=== PATIENT | female | born 1985 | race Caucasian/White ===

== ENCOUNTER 2020-07-29 19:02 | Emergency (ER) | payer MEDICAID, OTHER ==
[~2020-07-29] VITALS: Ht 165.1 cm; Wt 45.0 kg
[~2020-07-29 19:02] MED LIST: BUPR100T6 PO; CITA10TA8 PO; DOXE50CA PO; GABA300C10 PO; OXYC10TA6 PO
--- NOTE | 2020-07-29 19:21 | NUR ---
BELONGINGS REMOVED, SITTER IN LINE OF SITE, GARAGE DOORS DOWN. PT IS CALM, COOPERATIVE ON ARRIVAL. WAS GIVEN 4MG VERSED IM ON SCENE. PT DENIES ANY SI/HI ON ARRIVAL. NOT TAKING HER PSYCH MEDS, LIVES WITH GRANDPARENTS WHO STATE SHE IS DOING METH AND ACTING VIOLENT. TAKES SUBOXONE. PT REPORTS "SCHIZOEFFECTIVE DISORDER".
[2020-07-29 19:38] LABS: BASOPHILS % (AUTO) 0 % (0-1); EOSINOPHILS % (AUTO) 0 % (1-7); LYMPHOCYTES % (AUTO) 17 % (22-44); MEAN CORPUSCULAR HEMOGLOBIN 31.9 pg (27.0-34.8); MEAN CORPUSCULAR HGB CONC 33.8 g/dL (32.4-35.8); MEAN PLATELET VOLUME 8.4 fL (7.4-10.4); MONOCYTES % (AUTO) 4 % (2-9); NEUTROPHILS % (AUTO) 78 % (42-75); PLATELET COUNT 175 x10^3/uL (130-400); RED BLOOD COUNT 4.36 x10^6/uL (3.82-5.3)
--- NOTE | 2020-07-29 19:47 | NUR ---
Pt on cont pulse ox due to versed admin in field. Pt provided urine sample/sent. Flushing, drinks, snacks provided for pt. Sitter in line of site. Will continue to monitor.
[2020-07-29 19:49] LABS: ALANINE AMINOTRANSFERASE 21 U/L (12-78); ALBUMIN 4.2 g/dL (3.4-5.0); ANION GAP 8 mmol/L (5-15); CALCIUM 8.9 mg/dL (8.5-10.1); CHLORIDE 111 mmol/L (98-107); CREATININE 1.27 mg/dL (0.55-1.02)
[2020-07-29 19:51] LABS: MD NO
[2020-07-29 19:59] LABS: ALKALINE PHOSPHATASE 51 U/L (45-117); BILIRUBIN,TOTAL 0.7 mg/dL (0.2-1.0); TOTAL PROTEIN 6.7 g/dL (6.4-8.2)
[2020-07-29 20:10] LABS: AMPHETAMINE SCREEN, URINE Positive (Negative); BARBITURATE SCREEN, URINE Negative (Negative); BENZODIAZEPINE SCREEN, URINE Positive (Negative); CANNABINOID SCREEN, URINE Positive (Negative); COCAINE SCREEN, URINE Negative (Negative); METHADONE SCREEN, URINE Negative (Negative); OPIATE SCREEN, URINE Positive (Negative)
--- NOTE | 2020-07-29 20:18 | NUR ---
Pt remains, calm, cooperative. Watching tv, ate sandwich and chips drinking large water. Pt is aware she is on legal hold. Sitter in line of site, will continue to monitor.
--- NOTE | 2020-07-29 20:30 | NUR ---
Watching tv, talking to herself but calm and cooperative.
--- NOTE | 2020-07-29 21:30 | NUR ---
PT WITH INCREASING IN PARANOIA AND AGGITATION, RACING THOUGHTS, PACING BACK AND FORTH DEMANDING PAIN MEDICATION OXY. FEELS LIKE SOMEONE IS WATCHING HER SHE SAYS, RANDOM RACING THOUGHTS, AGGITATED BODY LANGUAGE LUNGING AND POINTING FINGER IN STAFF FACE. INFORMED PA-C FOR ORDER FOR MED.
[2020-07-29] MEDS ORDERED: ZIPRASIDONE 20 MG INJ IM ONE ×2 (21:37→22:00)
--- NOTE | 2020-07-29 21:44 | NUR ---
Security called to stand by for injection as patient was observed threatening sitter, flailing arms, pressured non sensical speach. Upon security arrival pt allowed injection, became tearful, got back into gurney and no untoward events occurred. Sitter remains in line of site. CN was aware of escalating situatiopn with this pt.
--- NOTE | 2020-07-29 22:18 | NUR ---
Pt now sleeping, RR equal and unlabored. Sitter in line of site; will continue to monitor.
--- NOTE | 2020-07-29 22:40 | NUR ---
Yesica True [phone]
--- NOTE | 2020-07-29 22:47 | NUR ---
Mother of pt Pedro True, pt lives with her mom and step dad. Mother (pedro) is who called 911. She says pt has been refusing to take any of her psych medications and has become increasingly violent at home. Mom has been trying to get her into see psych here in [place] for a "psych shot" because she won't take pills. Mom says she was living in [place] with a bf but mom went out there to pick her up. Mother believes she was dx with schizoeffective and bipolar, also has hx of Elhers Danlers syndrome.
--- NOTE | 2020-07-29 23:36 | NUR ---
Pt sleeping, RR equal and unlabored. Garage doors down, safety updated. Sitter at bedside in line of site.
--- NOTE | 2020-07-30 00:12 | NUR ---
Sleeping RR equal and unlabored. Sitter in line of site. Will continue to monitor. Needs met of pt.
--- NOTE | 2020-07-30 01:14 | NUR ---
Sleeping, RR equal and unlabored. Sitter in line of site, will continue to monitor.
--- NOTE | 2020-07-30 02:23 | NUR ---
Sleeping, RR equal and unlabored. In line of site of sitter, will continue to monitor.
--- NOTE | 2020-07-30 03:27 | NUR ---
Sleeping, RR equal and unlabored. Sitter in line of site, will continue to monitor.
--- NOTE | 2020-07-30 03:46 | NUR ---
packet faxed to [facility].
--- NOTE | 2020-07-30 04:25 | NUR ---
Sleeping, RR equal and unlabored. Sitter in line of site; will continue to monitor.
--- NOTE | 2020-07-30 04:43 | NUR ---
report received from thomas donaldson
--- NOTE | 2020-07-30 05:14 | NUR ---
Face sheet updated. self pay. packet faxed to [facility]
--- NOTE | 2020-07-30 06:26 | NUR ---
pt sleeping, no needs at this time
--- NOTE | 2020-07-30 07:03 | NUR ---
report given to olive donaldson
--- NOTE | 2020-07-30 07:06 | NUR ---
SBAR HAND-OFF REPORT RECEIVED FROM SUZI MESA. ASSUMING CARE OF PATIENT.
--- NOTE | 2020-07-30 08:00 | NUR ---
BREAKFAST AND JUICE SERVED TO PATIENT.
[2020-07-30] MEDS ORDERED: CYCL15CA21 PO (09:18)
--- NOTE | 2020-07-30 10:17 | NUR ---
MOTHER, TROY, CALLED AND HER PHONE NUMBER IS .
[2020-07-30] MEDS ORDERED: OXYcodone IR 5MG TABLET ONE (10:31)
[2020-07-30] MEDS: OXYcodone IR 5MG TABLET PO PRN (10:37)
--- NOTE | 2020-07-30 11:38 | NUR ---
BREAK RN: RAMIRO JOURNEYMAN MACHINIST AT BEDSIDE TO [place] PT. MEAL TRAY REQUESTED. PT CONT IN SECURE ROOM WITH SITTER.
[2020-07-30] MEDS ORDERED: LORazepam 1MG TABLET PO ONE (12:00)
--- NOTE | 2020-07-30 12:10 | NUR ---
REPORT TO RAHAT ARCHER
[2020-07-30] MEDS ORDERED: LORazepam 1MG TABLET ONE (12:33)
--- NOTE | 2020-07-30 12:38 | NUR ---
PHARMACY REQUEST SLIP SENT TO PHARMACY FOR INVEGA. PT MEDICATED WITH ATIVAN PO ORDERED AND LUNCH TRAY SERVED. PT IS CALM AND COOPERATIVE AT THIS TIME BUT IS SOMEWHAT ANXIOUS.
--- NOTE | 2020-07-30 12:51 | NUR ---
CALLED [facility]STAIRS TO [facility] AND LEFT VOICEMAIL REQUESTING THAT SOMEONE HELP PATIENT APPLY FOR MEDICAID.
[2020-07-30] MEDS ORDERED: PALIPERIDONE 3 MG TAB.ER.24 PO SCH (13:00)
--- NOTE | 2020-07-30 13:25 | NUR ---
PUT PATIENT ON HOSPITAL BED FOR COMFORT. FRESH WATER SERVED. PT RESTING WITH NO COMPLAINTS AND IS WATCHING TV.
--- NOTE | 2020-07-30 14:00 | NUR ---
PT REMAINS UNDER CONSTANT SUPERVISION OF SITTER AND REMAINS SAFE.
--- NOTE | 2020-07-30 15:00 | NUR ---
PT REMAINS UNDER CONSTANT SUPERVISION OF SITTER AND REMAINS SAFE.
--- NOTE | 2020-07-30 16:00 | NUR ---
PT REMAINS UNDER CONSTANT SUPERVISION OF SITTER AND REMAINS SAFE.
--- NOTE | 2020-07-30 17:00 | NUR ---
PT REMAINS UNDER CONSTANT SUPERVISION OF SITTER AND REMAINS SAFE.
--- NOTE | 2020-07-30 18:00 | NUR ---
PT REMAINS UNDER CONSTANT SUPERVISION OF SITTER AND REMAINS SAFE.
--- NOTE | 2020-07-30 19:14 | NUR ---
SBAR HAND-OFF REPORT TO SUZI BABIN.
--- NOTE | 2020-07-30 20:52 | NUR ---
PT RESTING COMFORTABLY IN BED, PT AMBULATED TO RESTROOM EARLIER AND WAS PROVIDED JUICE PER REQUEST. IN LINE OF SIGHT OF SITTER
--- NOTE | 2020-07-30 21:43 | NUR ---
PT ASLEEP IN BED, RESPIRATIONS EVEN/UNLABORED. IN LINE OF SIGHT OF SITTER
--- NOTE | 2020-07-30 23:14 | NUR ---
PT STILL SLEEPING, IN LINE OF SIGHT OF SITTER, RESPIRATIONS EVEN/UNLABORED
--- NOTE | 2020-07-30 23:53 | NUR ---
pt sleeping, respirations even/unlabored. in line of sight of sitter
--- NOTE | 2020-07-31 01:06 | NUR ---
pt still sleeping, in line of sight of sitter, no s/s of distress
--- NOTE | 2020-07-31 02:25 | NUR ---
PT SLEEPING, RESPIRATIONS EVEN/UNLABORED. IN LINE OF SIGHT OF SITTER
--- NOTE | 2020-07-31 04:20 | NUR ---
PT ASLEEP, RESP EVEN/UNLABORED, IN LINE OF SIGHT OF SITTER
--- NOTE | 2020-07-31 06:23 | NUR ---
PT ASLEEP, RESPIRATIONS EVEN/UNLABORED. IN LINE OF SIGHT OF SITTER
--- NOTE | 2020-07-31 07:02 | NUR ---
REPORT REC'VD FROM SUZI BABIN. PT RESTING ON HOSPITAL BED. EVEN RISE OF CHEST NOTED. PT IN FULL VIEW OF SITTER. ROOM SECURED.
--- NOTE | 2020-07-31 08:16 | NUR ---
BREAKFAST TRAY DELIVERED. PT AWAKENED TO RN IN ROOM.
[2020-07-31] MEDS ORDERED: OXYcodone IR 5MG TABLET ONE (08:42)
[2020-07-31] MEDS: OXYcodone IR 5MG TABLET PO PRN (08:52)
--- NOTE | 2020-07-31 08:59 | NUR ---
PT PHYSICAL AND SUICIDE REASSESSMENT COMPLETED. VSS. PT HAS LEFT SHOLDER AND MIDBACK PAIN. PT STATES SHE HAS NO SUICIDAL THOUGHTS, SHE JUST WANTS TO BE ABLE TO TALK TO GOD. PT ALSO STATES SHE DOESN'T WANT THE MEDS WE ARE GIVING HER, THEY MAKE HER SLEEPY AND UNABLE TO HEAR GOD. PT ASKING FOR PAPER AND PENCIL TO WRITE WHAT SHE IS HEARING.
[2020-07-31] MEDS ORDERED: PALIPERIDONE 1.5 MG TAB.ER.24 PO SCH (09:00)
--- NOTE | 2020-07-31 11:55 | NUR ---
PT IN FULL VIEW OF SITTER. ROOM SECURED.
--- NOTE | 2020-07-31 11:55 | NUR ---
PT SITTING UP ON HOSPITAL BED WITH BOOK IN HAND. PT STILL REQUESTING PEN AND PAPER. ALL OTHER NEEDS MET AT THIS TIME.
[2020-07-31] MEDS ORDERED: NICOTINE 14MG/24 HR PATCH.TD24 TD SCH (12:30)
[2020-07-31] MEDS ORDERED: NICOTINE 14MG/24 HR PATCH.TD24 ONE (13:35)
[2020-07-31] MEDS ORDERED: OXYcodone/APAP 10/325MG TABLET ONE (13:36)
[2020-07-31] MEDS: PALIPERIDONE 1.5 MG TAB.ER.24 PO SCH (13:48)
[2020-07-31] MEDS: OXYcodone/APAP 10/325MG TABLET PO PRN (13:49)
--- NOTE | 2020-07-31 13:50 | NUR ---
PT MEDICATED PER MAR
--- NOTE | 2020-07-31 14:54 | NUR ---
TASK RN: PT HAS NO NEEDS AT THIS TIME. IN DIRECT VIEW OF SITTER.
--- NOTE | 2020-07-31 15:29 | NUR ---
PT RESTING ON [facility] WITH PEN AND PAPER IN HAND. PT REQUESTED AND PROVIDED DECAF COFFEE. ALL NEEDS MET AT THIS TIME.
--- NOTE | 2020-07-31 17:32 | NUR ---
PT DINNER DELSAWVERED. NAD. PT IN FULL VIEW OF SITTER. ROOM SECURED. ALL PT NEEDS MET AT THIS TIME.
--- NOTE | 2020-07-31 19:03 | NUR ---
report received from saroj donaldson
[2020-07-31] MEDS ORDERED: LORazepam 2 MG/ML, 1ML ONE (19:52)
[2020-07-31] MEDS: LORazepam 2 MG/ML, 1ML IM PRN (20:03)
--- NOTE | 2020-07-31 20:04 | NUR ---
PT DENYING SI THOUGHTS. STATES SHE NEEDS TO SAVE 45 SOULS FOR GOD BEFORE SHE IS ABLE TO GO HOME. PT RESTING IN HOSPITAL BED, GIVEN SPRITE AND MEDICATED FOR ANXIETY PER EMAR.
--- NOTE | 2020-07-31 21:01 | NUR ---
PT RESTING IN HOSPITAL BED, NO NEEDS AT THIS TIME
--- NOTE | 2020-07-31 22:33 | NUR ---
PT SLEEPING, RESP EVEN AND UNLABORED. SITTER AT DOORWAY
--- NOTE | 2020-08-01 00:42 | NUR ---
PT SLEEPING, RESP EVEN AND UNLABORED. SITTER AT DOORWAY
--- NOTE | 2020-08-01 02:00 | NUR ---
pt sleeping, sitter at doorway
--- NOTE | 2020-08-01 03:00 | NUR ---
pt sleeping, sitter at doorway
--- NOTE | 2020-08-01 03:57 | NUR ---
pt sleeping, no needs at this time. sitter at doorway
--- NOTE | 2020-08-01 05:24 | NUR ---
pt sleeping, no needs at this time, sitter at doorway
[2020-08-01] MEDS ORDERED: OXYcodone/APAP 10/325MG TABLET ONE (05:41)
[2020-08-01] MEDS: OXYcodone/APAP 10/325MG TABLET PO PRN ×2 (05:45→12:06)
--- NOTE | 2020-08-01 07:00 | NUR ---
ASSUMED CARE OF PATIENT. REPORT FROM MOSHE ARCHER.
--- NOTE | 2020-08-01 07:40 | NUR ---
PATIENT IS RESTING COMFORTABLY IN A HOSPITAL BED WITH SITTER OUTSIDE THE DOOR. SHE STATES SHE IS HUNGRY AND THAT SHE ALMOST STARVED HERSELF BUT GOD TOOK OVER AND NOW SHE HEARS AND SEES GOD. SHE IS ALSO SEEING SHADOWS AND BELIEVES THERE ARE SOME SORT OF MONSTER IN HER ROOM. SECURITY BREAKFAST TRAY ORDERED. VITALS UPDATED.
--- NOTE | 2020-08-01 08:12 | NUR ---
SECURITY BREAKFAST TRAY PROVIDED
--- NOTE | 2020-08-01 08:59 | NUR ---
REPORT GIVEN TO KATHY ARCHER.
--- NOTE | 2020-08-01 09:32 | NUR ---
PT RESTING COMFORTABLY IN BED AT THIS TIME. ROOM SECURE AND SITTER IN HALLWAY.
[2020-08-01] MEDS: PALIPERIDONE 1.5 MG TAB.ER.24 PO SCH (10:27)
[2020-08-01] MEDS ORDERED: IBUPROFEN 600 MG TABLET ONE (10:53)
--- NOTE | 2020-08-01 10:54 | NUR ---
PT MEDICATED FOR PAIN AT THIS TIME. PT WISHES TO USE SHOWER. TECH AT PT SIDE TO SHOWER.
[2020-08-01] MEDS ORDERED: IBUPROFEN 600 MG TABLET PO ONE (11:00)
[2020-08-01] MEDS ORDERED: HYDROcodone/APAP 10/325 MG TABLET ONE (12:02)
--- NOTE | 2020-08-01 12:23 | NUR ---
pt resting comfortably in bed. pt medicated per order for pain. room secure and sitter in hallway. pt denies si/hi at this time. bible and pen at bedside
--- NOTE | 2020-08-01 14:02 | NUR ---
ASSUMED CARE FROM SUZI CHAVEZ. PT RESTING IN [facility] AT THIS TIME, WILL CONTINUE TO MONITOR. PT REPORTS NO NEEDS AT THIS TIME.
[2020-08-01] MEDS ORDERED: NICOTINE 14MG/24 HR PATCH.TD24 TD ONE (14:30)
[2020-08-01] MEDS ORDERED: NICOTINE 14MG/24 HR PATCH.TD24 ONE (14:38)
[2020-08-01] MEDS ORDERED: LORazepam 2 MG/ML, 1ML ONE (15:43)
[2020-08-01] MEDS: LORazepam 2 MG/ML, 1ML IM PRN (15:45)
--- NOTE | 2020-08-01 16:37 | NUR ---
PT RESTING IN [facility], PROVIDED SNACK, PT STATES NO NEEDS AT THIS TIME, WILL CONTINUE TO MONITOR.
[2020-08-01] MEDS ORDERED: OXYcodone/APAP 10/325MG TABLET PO ONE (18:00)
--- NOTE | 2020-08-01 18:04 | NUR ---
PT REPORTING SHE HAS RIGHT RIB PAIN 02/19. PT MEDICATED PER EMAR. [facility], WILL CONTINUE TO MONITOR.
--- NOTE | 2020-08-01 18:51 | NUR ---
Note davdi in EDM - 08/01/20 at 1852 by CHAGO BREAK RN: PT RESTING IN ROOM. TAX TECHNICIAN ON. FAMILY AT BEDSIDE. SITTER AT DOOR. CALL LIGHT IN PLACE. WILL CONTINUE TO MONITOR WHILE PRIMARY RN IS ON BREAK.
--- NOTE | 2020-08-01 18:52 | NUR ---
BREAK RN: PT RESTING IN ROOM. REGULAR RESP. NO ACUTE DISTRESS NOTED. SITTER AT DOOR. WILL CONTINUE TO MONIOR WHILE PRIMARY RN IS ON BREAK.
[2020-08-01] MEDS ORDERED: CYCLOBENZAPRINE 10 MG TABLET ONE (22:50)
[2020-08-01] MEDS ORDERED: CYCLOBENZAPRINE 10 MG TABLET PO ONE (23:00)
--- NOTE | 2020-08-01 23:24 | NUR ---
PT RESTING IN [facility], SITTER IN LINE OF SITE, JOSE ALEJANDRO AT THIS TIME, WILL CONTINUE TO MONITOR.
--- NOTE | 2020-08-02 01:25 | NUR ---
PT RESTING IN [facility], WITHIN DIRECT LINE OF SITE OF JOSE ALEJANDRO ADHIKARI AT THIS TIME, WILL CONTINUE TO MONITOR. PT'S BELONGINGS STILL IN SAFE KEEPING.
--- NOTE | 2020-08-02 02:03 | NUR ---
REPORT GIVEN TO SUZI BURDICK.
--- NOTE | 2020-08-02 03:08 | NUR ---
REPORT FROM SUZI BURDICK
--- NOTE | 2020-08-02 04:17 | NUR ---
pt resting on hospital bed. sitter at doorway for frequent checks. respirations even and unlabored.
[2020-08-02] MEDS ORDERED: OXYcodone/APAP 10/325MG TABLET ONE ×2 (06:17→13:20)
[2020-08-02] MEDS: OXYcodone/APAP 10/325MG TABLET PO PRN ×3 (06:22→21:49)
--- NOTE | 2020-08-02 06:29 | NUR ---
PT STATES CHRONIC BACK AND JOINT PAIN. PAIN CURRENTLY RATED 7/10 PT MEDICATED FOR PAIN PER EMAR.
--- NOTE | 2020-08-02 07:00 | NUR ---
RECVD REPORT FROM YESSY ARCHER. ASSUMED CARE OF PATIENT. SHE IS RESTING COMFORTABLY READING A BOOK AND WATCHING TV. SHE HAS REQUESTED TO SHOWER AFTER BREAKFAST. VITALS UPDATED AND SUICIDE ASSESMENT UPDATED. SITTER OUTSIDE ROOM WITHIN VIEW.
--- NOTE | 2020-08-02 07:57 | NUR ---
TASK RN NOTE: PT SITTING UP WATCHING TELEVISION. NAD NOTED AT THIS TIME. RESPIRATIONS EVEN AND UNLABORED ON WOB ON RA. SITTER OUTSIDE OF ROOM FOR DIRECT OBSERVATION AND Q15 MIN SAFETY CHECKS.
--- NOTE | 2020-08-02 08:28 | NUR ---
SAFETY BREAKFAST TRAYS AND DECAF COFFEE PROVIDED.
[2020-08-02] MEDS: PALIPERIDONE 1.5 MG TAB.ER.24 PO SCH (09:00)
--- NOTE | 2020-08-02 09:41 | NUR ---
CHAPERONED PATIENT TO SHOWER, PROVIDED NEW LINENS, UNDERWEAR, SOCKS, AND SUPPLIES FOR ORAL CARE. PATIENT RESTING COMFORTABLY IN HOSPITAL BED.
--- NOTE | 2020-08-02 10:25 | NUR ---
PATIENTS NICOTINE PATCH CAME OFF WHILE IN THE SHOWER. SHE STATED SHE DOES NOT NEED ANOTHER PATCH AND THAT HER CRAVINGS ARE GONE. SHE IS COMPLAINING OF RIGHT RIB PAIN. AN ICE PACK WAS GIVEN AND THE PATIENT WAS ADVISED THAT SHE IS NOT DUE FOR ADDITIONAL NARCOTIC MEDICATION UNTIL LATER IN THE DAY. THE PATIENT HAS BEEN EDUCATED ABOUT NON PHARMACOLOGICAL OPTIONS. SITTER OUTSIDE THE DOOR WITH DIRECT VIEW OF THE PATIENT.
--- NOTE | 2020-08-02 10:57 | NUR ---
PATIENT IS UPSET AND CRYING THAT SHE NEEDS HER CYCLOBENZAPRINE FOR HER PAIN. SHE TAKES THEM AT HOME AND WOULD LIKE TO TAKE THAT INSTEAD OF PERCOCET. MEDICATED HER WITH THE INVEGA ON THE AGREEMENT THAT I WOULD LOOK INTO HER REQUEST FOR THE MUSCLE RELAXERS.
--- NOTE | 2020-08-02 11:45 | NUR ---
Preceptor RN: Iftikhar ACUNA has been to bedside for psych eval. pt to remain on legal hold at this time. pt sitting up on hospital bed. room secure. sitter present for safety report to Felipe ARCHER for lunch
[2020-08-02] MEDS ORDERED: METHOCARBAMOL 750 MG TABLET ONE (11:47)
--- NOTE | 2020-08-02 11:53 | NUR ---
BREAK RN: PATIENT SITTING IN HOSPITAL BED WITH BOOK IN HAND, PATIENT LOOKING IN CORNER AND TALKING TO SELF, NADN, SUICIDE PRECAUTIONS IN PLACE, SITTER IN LINE OF SIGHT.
--- NOTE | 2020-08-02 13:22 | NUR ---
THE PATIENT HAD BEEN RESTING COMFORTABLY BUT IS NOW TEARY AND COMPLAINING OF PAIN AGAIN IN THE RIGHT RIB AREA. SHE STATED THE ROBAXIN DID NOT HELP HER AND SHE WOULD NOW LIKE TO TAKE HER PERCOCET. WILL MEDICATE PER EMAR. SHE ALSO WANTED A PEN BUT WAS ADVISED SHE IS NOT ALLOWED TO HAVE THAT IN A SECURE ROOM. SHE WAS GIVEN A SMALL WHIT BOARD MARKER. SITTER IS OUTSIDE DOOR WITH PATIENT IN VIEW. CALL LIGHT WITHIN REACH.
--- NOTE | 2020-08-02 15:41 | NUR ---
PATIENT IS RESTING COMFORTABLY IN HER HOSPITAL BED COMBING HER HAIR AND WATCHING TV. LIP BALM, LOTION, AND A HAIR COMB GIVEN. NO ADDITIONAL NEEDS VERBALIZED AT THIS TIME. SITTER OUTSIDE ROOM. PATIENT IS UP SELF TO BATHROOM REGULARLY
--- NOTE | 2020-08-02 16:37 | NUR ---
LEFT MESSAGE WITH THE [employer] TRAVEL COUNSELOR, THE PATIENT WOULD LIKE SOMEONE TO PRAY WITH HER.
--- NOTE | 2020-08-02 17:21 | NUR ---
UPDATED VITALS, ORDERED DINNER TRAY. PT BELIEVES THAT HER NECKLACE IS POSESSED AND SHOULD BE IN A CUP OF WATER AT THE BEDSIDE. PT IS RESTING COMFORTABLY WITH A SITTER OUTSIDE THE DOOR.
--- NOTE | 2020-08-02 17:57 | NUR ---
SECURITY DINNER TRAY PROVIDED, POT ROOM SUPERVISOR AT BEDSIDE FOR PRAYER WITH PATIENT.
--- NOTE | 2020-08-02 19:03 | NUR ---
REPORT GIVEN TO MICHELLE ARCHER FOR SHIFT CHANGE
--- NOTE | 2020-08-02 20:16 | NUR ---
INITIAL INTERACTION WITH PATIENT DURING BEDSIDE REPORT FROM SUZI ESPAÑA AT 1905. PT STANDING IN DOORWAY OF ROOM, COMPLAINING OF RIGHT SIDED RIB/ BREAST PAIN. PT COOPERATIVE WITH THIS RN. SECOND INTERACTION WITH THIS PATIENT AT 1933. PT CRYING, STATES "I KNOW MY RIGHTS AND I FEEL LIKE I'M BEING IGNORED ON PURPOSE.I HAVE PAIN, AND I'M SUPPOSED TO BE ABLE TO TAKE PAIN MEDS 4 TIMES A DAY NOT 3 TIMES A DAY." WHEN ASKED ABOUT SI/HI, PT STATES "THAT'S NOT WHY I'M HERE, I WANT TO HELP PEOPLE. I HEAR MY VOICE AND GOD'S VOICE AND I DON'T THINK THAT'S BAD, IF THEY'RE TELLING ME POSITIVE THINGS." CONFIRMED WITH PATIENT THAT SHE IS BEING TOLD POSITIVE THINGS CURRENTLY. "MY PAIN FEEDS THE DEVIL AND I DON'T WANT TO FEED THE DEVIL." PT EDUCATED THAT SHE WILL RECEIVE HER MEDICATION PRESCRIBED, PT COMMUNICATED UNDERSTANDING.
[2020-08-02] MEDS: METHOCARBAMOL 750 MG TABLET PO PRN (21:22)
[2020-08-03] MEDS: LORazepam 2 MG/ML, 1ML IM PRN ×2 (00:58→19:58)
--- NOTE | 2020-08-03 05:49 | NUR ---
Pt has remained sleeping in view of the sitter. Visible chest rise and fall, moving self in sleep to position of comfort. All needs met.
--- NOTE | 2020-08-03 06:54 | NUR ---
REPORT FROM MICHELLE
--- NOTE | 2020-08-03 06:59 | NUR ---
Report to SUZI Corona. Pt sleeping, visible chest rise and fall.
[2020-08-03] MEDS: PALIPERIDONE 6 MG TAB.ER.24 PO SCH (09:00)
[2020-08-03] MEDS ORDERED: OXYcodone/APAP 10/325MG TABLET ONE ×2 (09:04→15:54)
[2020-08-03] MEDS ORDERED: METHOCARBAMOL 750 MG TABLET ONE ×2 (09:04→15:54)
[2020-08-03] MEDS: OXYcodone/APAP 10/325MG TABLET PO PRN ×2 (09:20→15:56)
[2020-08-03] MEDS: METHOCARBAMOL 750 MG TABLET PO PRN ×2 (09:20→15:56)
--- NOTE | 2020-08-03 09:20 | NUR ---
PROVIDED MEAL TRAY, SITTER PRESENT. REQUESTS SHOWER THIS AM
--- NOTE | 2020-08-03 10:26 | NUR ---
PROVIDED SHOWER, CLEAN LINES. PT MOOD HAPPY.
--- NOTE | 2020-08-03 10:29 | NUR ---
PT REQUESTING PAIN MED AND MUSCLE RELAXING
--- NOTE | 2020-08-03 12:36 | NUR ---
TASK RN: MEAL TRAY PROVIDED, PT ASKING WHEN MEDICATION DUE, WILL REVIEW MAR FOR MEDS. NO OTHER NEEDS SITTER IN PLACE
--- NOTE | 2020-08-03 13:26 | NUR ---
PT TEARFUL, MEDICATED FOR ANXIETY. DISCUSSED SCHEDULE FOR MEDICINES AVAILABLE PRN
--- NOTE | 2020-08-03 14:37 | NUR ---
PROVIDED BEVERAGES. PT FAMILY LEFT COOKIES, BIBLE, AND JOURNAL FOR PT.
--- NOTE | 2020-08-03 15:56 | NUR ---
MEDICATED FOR PAIN
--- NOTE | 2020-08-03 16:18 | NUR ---
PT RESTING COMFORTABLE, SITTING ON HOSP BED. SITTER PRESENT
--- NOTE | 2020-08-03 16:56 | NUR ---
SISTER IS VISITING PATIENT
--- NOTE | 2020-08-03 17:14 | NUR ---
PT AMBULATED IN HALLS W STAFF SUPERVISION. PT MOOD HAPPY.
--- NOTE | 2020-08-03 18:19 | NUR ---
PROVIDED MEAL TRAY. SITTER PRESENT
--- NOTE | 2020-08-03 18:58 | NUR ---
REPORT FROM SUZI TALAMANTES
[2020-08-03] MEDS ORDERED: LORazepam 2 MG/ML, 1ML ONE (19:42)
--- NOTE | 2020-08-03 19:58 | NUR ---
pt in the hallway on the phone with family. after phone call, pt tearful becuase she wants to spend the holidays with here family, but instead she is here. pt requested medication for anxiety. pt medicated per emar. room cleared of garbage. VSS.
--- NOTE | 2020-08-03 22:00 | NUR ---
pt resting on hospital bed. eyes closed. respirations even and unlabored. sitter at doorway for frequent checks.
--- NOTE | 2020-08-03 23:56 | NUR ---
pt resting on hospital bed. eyes closed. respirations even and unlabored. sitter at doorway for frequent checks.
[2020-08-04] MEDS: METHOCARBAMOL 750 MG TABLET PO PRN ×2 (01:05→08:51)
[2020-08-04] MEDS: OXYcodone/APAP 10/325MG TABLET PO PRN ×3 (01:05→16:32)
--- NOTE | 2020-08-04 01:11 | NUR ---
RECEIVED BS REPORT FROM SUZI KRISHNAMURTHY TO ASSUME CARE OF PT. AT THIS TIME. PT. STANDING IN SMITH READING BOOK. PT. REQUEST FOR COFFEE. ROOM IS SECURED. SITTER IN DOORWAY.
--- NOTE | 2020-08-04 02:25 | NUR ---
PT. REQUESTING SHOWER TO HELP WITH BODY PAIN. NEW GOWNS/TOWELS/SOCKS/SOAP PROVIDED. PT. TO SHOWER ROOM WITH SITTER IN DOORWAY.
--- NOTE | 2020-08-04 03:02 | NUR ---
PT. RETURN TO ROOM FROM SHOWER. PROVIDED MATERNITY PANTIES PER REQUEST. DENIES FURTHER NEEDS AT THIS TIME.
--- NOTE | 2020-08-04 03:58 | NUR ---
PT. REQUSTING FOOD. PROVIDED WITH CRACKERS, SPRITE, AND PEANUT BUTTER. SITTER REMAINS IN DIRECT VIEW. ROOM REMAINS SECURED.
--- NOTE | 2020-08-04 06:35 | NUR ---
PT. CALLED RN TO ROOM AND IS DEMANDING PERCOCET; PT. MADE AWARE THAT MEDICATION ISN'T AVAILABLE UNTIL 904 THIS AM SHE RECEIVED ONE AT 0105. PT. STATES "I GET MY PERCOCET EVERY 6 HOURS AND MY ROBAXIN EVERY 8 HOURS, YOU GUYS HAVE IT BACKWARDS! I HAVE HAD THIS CONVERSATION WITH EVERYONE ALREADY AND YOU GUYS NEED TO GET IT RIGHT!! I WANT YOUR COMBO WELDER AND YOUR DIRECTORS PHONE NUMBERS. I AM TIRED OF TALKING TO YOU GUYS." ONOFRE REMAINS IN SMITH.
--- NOTE | 2020-08-04 06:59 | NUR ---
BS REPORT TO SUZI MARQUEZ. PT. EXPRESSING FRUSTRATION OVER PAIN MEDS. PT. OFFERED NON-PHARMACOLOGIC PAIN RELIEF OPTIONS.
--- NOTE | 2020-08-04 07:30 | NUR ---
PT COMING INTO HALLS FREQUENTLY PASING IN SMITH, PT OFFERED VERBAL SUPPORT EXPLAINED SHE IS SAFE TO REMAIN IN RM UNTIL RN ABLE TO OBTAIN MEDICATIONS FOR HER. PT COOPERATIVE . SITTER IN PLACE
--- NOTE | 2020-08-04 08:15 | NUR ---
MED REQUEST SENT TO PHARM FOR INVCHANTALE, PT UPDATED, GIVEN MEAL TRAY.
[2020-08-04] MEDS ORDERED: OXYcodone/APAP 10/325MG TABLET ONE ×2 (08:16→16:29)
[2020-08-04] MEDS ORDERED: METHOCARBAMOL 750 MG TABLET ONE (08:17)
[2020-08-04] MEDS: PALIPERIDONE 6 MG TAB.ER.24 PO SCH (08:51)
--- NOTE | 2020-08-04 08:52 | NUR ---
PT MEDICATED PER OCT, PT STATES "IM SO SORRY FOR MY FREAKOUT, IM SO SORRY, I GUESS THIS IS WHAT I NEED FOR MY SINS"
[2020-08-04 08:53] VITALS: BP 101/73
--- NOTE | 2020-08-04 10:49 | NUR ---
PT FRIEND CALLED NAMED MELANIE [phone]. WILL ALLOW PT TO CALL FRIEND AT LATER TIME, PT CALM IN RM AT THIS TIME
--- NOTE | 2020-08-04 12:30 | NUR ---
PT ASKING MULTIPLE TIMES TO TAKE A SHOWER, EXPLAINED TO PT FLORES ONE STAFF MEMBER IS NEEDED TO PROVIDE FOR HER SAFTY MEASURES. ONCE THIS RN CAN MAINTAIN THE PTS SAFTY WITH SITTER IN VIEW A SHOWER WILL THEN BE PROVIDED. PT GIVEN MEAL TRAY
[2020-08-04] MEDS ORDERED: LORazepam 1MG TABLET PO ONE (13:30)
[2020-08-04] MEDS ORDERED: PALIPERIDONE PALMITATE 234 MG/1.5 ML IM ONE (13:30)
--- NOTE | 2020-08-04 15:00 | NUR ---
PT COVID SWAB COMPLETED. WALKED SAMPLE TO LAB
[2020-08-04] MEDS ORDERED: LORazepam 1MG TABLET ONE (16:29)
--- NOTE | 2020-08-04 17:17 | NUR ---
REPORT GIVEN TO RECIEVING RN, AWAITING TRANSPORT
[2020-08-08] MEDS ORDERED: METH-640 PO (12:37)
[2020-08-11] MEDS ORDERED: PALIPERIDONE PALMITATE 156 MG/ML IM SCH (09:00)
== END 2020-08-04 17:56 | disposition left against medical advice (07) ==
LOC: ED 07-30 03:59
DX: F20.9 Schizophrenia, unspecified (principal); F12.150 Cannabis abuse with psychotic disorder with delusions; F17.210 Nicotine dependence, cigarettes, uncomplicated; F10.129 Alcohol abuse with intoxication, unspecified; Z72.9 Problem related to lifestyle, unspecified; F32.9 Major depressive disorder, single episode, unspecified; Z20.828 Contact with and (suspected) exposure to other viral communicable diseases
CPT/HCPCS: 36415; 80053; 80299; 80307; 80320; 80329; 84443; 84703; 85025; 87426; 96372; 99285; 99406; J2060; J2426; J3486; Q0177; G0480

== ENCOUNTER 2020-08-04 16:43 | Inpatient (IN) | payer OTHER ==
[~2020-08-04] VITALS: Ht 162.6 cm; Wt 51.0 kg
[~2020-08-04 16:43] MED LIST changes: +CYCL15CA21 PO; +NICOTINE 14MG/24 HR PATCH.TD24 TD SCH
[2020-08-04] MEDS ORDERED: DOCUSATE 100 MG CAPSULE PO PRN (17:00)
[2020-08-04] MEDS ORDERED: ONDANSETRON ODT 4 MG PO PRN (17:00)
[2020-08-04] MEDS ORDERED: BISACODYL 10 MG SUPP PR PRN (17:00)
[2020-08-04] MEDS ORDERED: POLYETHYLENE GLYCOL 17 GM PACKET PO PRN (17:00)
[2020-08-04 19:25] VITALS: BP 109/76
[2020-08-04 20:05] VITALS: BP 109/76
[2020-08-04] MEDS: LORazepam 1MG TABLET PO PRN (20:25)
[2020-08-04] MEDS: OXYcodone/APAP 10/325MG TABLET PO PRN (20:25)
[2020-08-04] MEDS: METHOCARBAMOL 750 MG TABLET PO PRN (20:25)
[2020-08-04 21:20] LABS: MICROSCOPIC NOT IND
[2020-08-05] MEDS: OXYcodone/APAP 10/325MG TABLET PO PRN ×3 (07:37→20:41)
[2020-08-05 07:47] VITALS: BP 100/69
[2020-08-05] MEDS: NICOTINE 14MG/24 HR PATCH.TD24 TD SCH (08:31)
[2020-08-05] MEDS: METHOCARBAMOL 750 MG TABLET PO PRN ×3 (09:03→21:09)
[2020-08-05 09:53] LABS: CHOL/HDL RATIO 1.9; FREE T4 (FREE THYROXINE) 1.18 ng/dL (0.76-1.46); LDL/HDL RATIO 0.6 (0.5-3.0)
[2020-08-05] MEDS: LORazepam 1MG TABLET PO PRN (17:05)
[2020-08-05 19:03] LABS: ANION GAP 3 mmol/L (5-15); CALCIUM 8.9 mg/dL (8.5-10.1); CHLORIDE 108 mmol/L (98-107); CREATININE 0.78 mg/dL (0.55-1.02)
[2020-08-05 19:11] LABS: BASOPHILS % (AUTO) 0 % (0-1); EOSINOPHILS % (AUTO) 1 % (1-7); LYMPHOCYTES % (AUTO) 22 % (22-44); MEAN CORPUSCULAR HEMOGLOBIN 31.9 pg (27.0-34.8); MEAN CORPUSCULAR HGB CONC 33.8 g/dL (32.4-35.8); MEAN PLATELET VOLUME 8.8 fL (7.4-10.4); MONOCYTES % (AUTO) 6 % (2-9); NEUTROPHILS % (AUTO) 71 % (42-75); PLATELET COUNT 158 x10^3/uL (130-400); RED BLOOD COUNT 4.27 x10^6/uL (3.82-5.3); RED CELL DISTRIBUTION WIDTH 14.1 % (9.6-15.2)
[2020-08-05 19:13] LABS: MD NO
[2020-08-05 19:30] VITALS: BP 104/74
[2020-08-06 07:17] VITALS: BP 110/75
[2020-08-06] MEDS: NICOTINE 14MG/24 HR PATCH.TD24 TD SCH (07:50)
[2020-08-06] MEDS: METHOCARBAMOL 750 MG TABLET PO PRN ×3 (07:51→20:19)
[2020-08-06] MEDS: OXYcodone/APAP 10/325MG TABLET PO PRN ×2 (07:51→20:19)
[2020-08-06] MEDS: LORazepam 1MG TABLET PO PRN ×2 (12:39→22:17)
[2020-08-06] MEDS ORDERED: DOCUSATE 100 MG CAPSULE PO SCH (13:00)
[2020-08-06] MEDS: DOCUSATE 100 MG CAPSULE PO SCH ×2 (13:48→20:18)
[2020-08-06] MEDS: BUPROPION SR 150 MG TABLET PO SCH (13:49)
[2020-08-06] MEDS: ACETAMINOPHEN 325 MG TABLET PO PRN (16:14)
[2020-08-06 19:34] VITALS: BP 115/72
[2020-08-07 07:31] VITALS: BP 111/72
[2020-08-07] MEDS: NICOTINE 14MG/24 HR PATCH.TD24 TD SCH (07:59)
[2020-08-07] MEDS: DOCUSATE 100 MG CAPSULE PO SCH ×2 (08:00→21:10)
[2020-08-07] MEDS: BUPROPION SR 150 MG TABLET PO SCH (08:00)
[2020-08-07] MEDS: OXYcodone/APAP 10/325MG TABLET PO PRN ×2 (08:00→14:02)
[2020-08-07] MEDS: METHOCARBAMOL 750 MG TABLET PO PRN ×3 (09:22→21:10)
[2020-08-07] MEDS: ACETAMINOPHEN 325 MG TABLET PO PRN (18:48)
[2020-08-07 19:54] VITALS: BP 105/71
[2020-08-08] MEDS: LORazepam 1MG TABLET PO PRN ×2 (03:34→13:47)
[2020-08-08 07:46] VITALS: BP 109/70
[2020-08-08] MEDS ORDERED: BUPROPION SR 150 MG TABLET PO SCH (08:00)
[2020-08-08] MEDS: NICOTINE 14MG/24 HR PATCH.TD24 TD SCH (08:18)
[2020-08-08] MEDS: DOCUSATE 100 MG CAPSULE PO SCH ×2 (08:19→19:20)
[2020-08-08] MEDS: OXYcodone/APAP 10/325MG TABLET PO PRN (08:21)
[2020-08-08] MEDS ORDERED: PALIPERIDONE PALMITATE 156 MG/ML IM ONE ×2 (09:00→09:30)
[2020-08-08] MEDS: METHOCARBAMOL 750 MG TABLET PO PRN ×3 (10:01→19:20)
[2020-08-08] MEDS ORDERED: NICO-486 TD (12:37)
[2020-08-08] MEDS ORDERED: METH750T2 PO (12:37)
[2020-08-08] MEDS ORDERED: PALI156D IM (12:37)
[2020-08-08] MEDS ORDERED: HYDR-826 PO (12:37)
[2020-08-08] MEDS: OXYcodone IR 5MG TABLET PO PRN (16:38)
[2020-08-08 19:22] VITALS: BP 99/66
[2020-08-09] MEDS: OXYcodone IR 5MG TABLET PO PRN ×2 (00:06→07:39)
[2020-08-09] MEDS: METHOCARBAMOL 750 MG TABLET PO PRN (06:17)
[2020-08-09] MEDS: DOCUSATE 100 MG CAPSULE PO SCH (07:37)
[2020-08-09] MEDS: NICOTINE 14MG/24 HR PATCH.TD24 TD SCH (07:38)
[2020-08-09 07:49] VITALS: BP 102/72
== END 2020-08-09 10:15 | disposition home or self-care (01) | DRG 885 ==
LOC: 3E 17:52
PROVIDERS: ADMIT Psychiatry & Neurology Psychosomatic Medicine; ATTEND Psychiatry & Neurology Psychosomatic Medicine
DX: F25.0 Schizoaffective disorder, bipolar type (principal); F17.200 Nicotine dependence, unspecified, uncomplicated; F19.11 Other psychoactive substance abuse, in remission; F41.9 Anxiety disorder, unspecified; G89.4 Chronic pain syndrome; Z76.5 Malingerer [conscious simulation]; Z90.710 Acquired absence of both cervix and uterus
CPT/HCPCS: 36415; 71045; 80048; 80061; 81003; 84439; 85025; 93005; J2426; Q0177

== ENCOUNTER 2020-09-03 19:03 | Emergency (ER) | payer MEDICAID, OTHER ==
[~2020-09-03] VITALS: Ht 165.1 cm; Wt 50.6 kg
[~2020-09-03 19:03] MED LIST changes: +HYDR-826 PO; +METH750T2 PO; +NICO-486 TD; -NICOTINE 14MG/24 HR PATCH.TD24 TD SCH; +PALI156D IM
--- NOTE | 2020-09-03 19:48 | NUR ---
Patient comes in with complaints of possible allergic reaction from her ablify. Patient states that she does hear voices. The voices are only her own voice that she here. Denies SI and HI. Provider at bedside
--- NOTE | 2020-09-03 21:43 | NUR ---
MD went in to room to speak to patient, MD stated that he was going to discharge patient, after saying that patient stated that she was SI and that she isn't going to leave, as well is going to call 911 stating this. Provider stated that she is still going to be discharge. Host/Hostess went in to give discharge paper work and upset. Patient getting dressed at this time
[2020-09-03 21:45] VITALS: BP 127/68
== END 2020-09-03 21:52 | disposition home or self-care (01) ==
LOC: ED 21:30
DX: F25.9 Schizoaffective disorder, unspecified (principal); F29 Unspecified psychosis not due to a substance or known physiological condition; R51.9 Headache, unspecified
CPT/HCPCS: 99284

== ENCOUNTER 2020-10-13 20:23 | Emergency (ER) | payer MEDICAID ==
[~2020-10-13] VITALS: Ht 165.1 cm; Wt 56.0 kg
[~2020-10-13 20:23] MED LIST changes: +METH-640 PO; -METH750T2 PO
--- NOTE | 2020-10-13 20:40 | NUR ---
Note undone in EDM - 10/13/20 at 2041 by NAHUM PT IN [facility] IN [facility]. NICKY RODRIGUEZ, AT FOR PT HISTORY AND ASSESSMENT. PT EDUCATED ON ER PROCESS AND POC AND VERBALIZES UNDERSTANDING. CALL LIGHT IS WITHIN REACH. AWAITING ORDERS FROM ERP AT THIS TIME. PT AMBULATES TO RESTROOM AT THIS TIME WITH UA CUP TO PROVIDE UA.
--- NOTE | 2020-10-13 20:42 | NUR ---
PT IN [place] IN [facility]. NICKY RODRIGUEZ, AT BS FOR PT HISTORY AND ASSESSMENT. PT EDUCATED ON ER PROCESS AND POC AND VERBALIZES UNDERSTANDING. CALL LIGHT IS WITHIN REACH. AWAITING ORDERS FROM ERP AT THIS TIME. PT AMBULATES TO RESTROOM AT THIS TIME WITH UA CUP TO PROVIDE UA.
[2020-10-13] MEDS ORDERED: MORPHINE SULFATE 4 MG/ML, 1ML ONE (20:44)
[2020-10-13] MEDS ORDERED: ONDANSETRON 2MG/ML, 2ML ONE (20:44)
--- NOTE | 2020-10-13 20:54 | NUR ---
UA COLLECTED AND SENT TO LAB
[2020-10-13 21:00] LABS: BASOPHILS % (AUTO) 0 % (0-1); EOSINOPHILS % (AUTO) 1 % (1-7); LYMPHOCYTES % (AUTO) 32 % (22-44); MEAN CORPUSCULAR HGB CONC 34.4 g/dL (32.4-35.8); MEAN PLATELET VOLUME 7.6 fL (7.4-10.4); MONOCYTES % (AUTO) 5 % (2-9); NEUTROPHILS % (AUTO) 62 % (42-75); PLATELET COUNT 212 x10^3/uL (130-400); RED BLOOD COUNT 4.74 x10^6/uL (3.82-5.3); RED CELL DISTRIBUTION WIDTH 13.8 % (9.6-15.2)
[2020-10-13] MEDS ORDERED: ONDANSETRON 2MG/ML, 2ML IVPush ONE (21:00)
[2020-10-13] MEDS ORDERED: MORPHINE SULFATE 4 MG/ML, 1ML IVPush PRN (21:00)
[2020-10-13] MEDS ORDERED: SODIUM CHLORIDE FLUSH 10ML SYR IVF ONE (21:00)
[2020-10-13 21:03] LABS: MICROSCOPIC AUTO
[2020-10-13 21:06] LABS: MD NO
[2020-10-13 21:14] LABS: ALBUMIN 4.4 g/dL (3.4-5.0); ANION GAP 8 mmol/L (5-15); CALCIUM 8.8 mg/dL (8.5-10.1); CHLORIDE 107 mmol/L (98-107)
[2020-10-13 21:20] LABS: ALANINE AMINOTRANSFERASE 35 U/L (12-78); ALKALINE PHOSPHATASE 77 U/L (45-117); BILIRUBIN,TOTAL 0.5 mg/dL (0.2-1.0); CREATININE 1.01 mg/dL (0.55-1.02); TOTAL PROTEIN 7.7 g/dL (6.4-8.2)
[2020-10-13 22:56] VITALS: BP 108/75
== END 2020-10-13 23:13 | disposition home or self-care (01) ==
LOC: ED 23:07
DX: R10.11 Right upper quadrant pain (principal); R93.5 Abnormal findings on diagnostic imaging of other abdominal regions, including retroperitoneum; R07.9 Chest pain, unspecified; R94.31 Abnormal electrocardiogram [ECG] [EKG]; F17.210 Nicotine dependence, cigarettes, uncomplicated
CPT/HCPCS: 36415; 71045; 76700; 80053; 81001; 83690; 84703; 85025; 87086; 93005; 96374; 96375; 99285; 99406; J2270; J2405